=== PATIENT | female | born 1950 | race Two or more races ===

== ENCOUNTER 2022-06-20 02:05 | Inpatient (IN) | payer MEDICARE, MEDICAID ==
[~2022-06-20] VITALS: Ht 162.6 cm; Wt 82.5 kg
[2022-06-20 03:00] LABS: Basophils # (auto) 0 10 ^3/uL (0-0.2); Basophils % (auto) 0.5 % (0.0-2.0); Eosinophils # (auto) 0.1 10 ^3/uL (0-0.8); Eosinophils % (auto) 1.8 % (0.0-7.0); Hematocrit 36.8 % (36.0-46.0); Hemoglobin 12.4 g/dL (12.2-16.2); Lymphocytes # (auto) 1.4 10 ^3/uL (0.4-5.4); Lymphocytes % (auto) 17.8 % (10.0-50.0); Mean Corpuscular Hemoglobin 30.9 pg (28.0-32.0); Mean Corpuscular Hgb Conc. 33.5 g/dL (32.0-36.0); Mean Corpuscular Volume 92.2 fL (80.0-100.0); Monocytes # (auto) 0.6 10 ^3/uL (0-1.3); Monocytes % (auto) 7.6 % (0.0-12.0); Neutrophils # (auto) 5.7 10 ^3/uL (1.6-8.6); Neutrophils % (auto) 72.3 % (37.0-80.0); Red Cell Distribution Width 13.6 % (11.8-14.3); White Blood Cell 7.8 10^3/uL (4.4-10.8)
[2022-06-20 03:08] LABS: INR 1.13 (0.9-1.15); Partial Thromboplastin Time 29.2 sec (24.6-33.4)
[2022-06-20 03:11] LABS: Albumin 3.8 g/dL (3.4-5.0); Magnesium 2.1 mg/dL (1.6-2.6); Potassium 4.1 mmol/L (3.5-5.1)
[2022-06-20 03:15] LABS: Bilirubin, Total 0.5 mg/dL (0.2-1.0); Total Protein 6.9 g/dL (6.4-8.2)
[2022-06-20] MEDS ORDERED: dilTIAZem 25 MG/5 ML VIAL IV ONE ×2 (03:15→03:17)
[2022-06-20] MEDS ORDERED: ONDANSETRON HCL 4 MG/2 ML VIAL IV PRN (05:45)
[2022-06-20] MEDS ORDERED: ZOLPIDEM TARTRATE 5 MG TAB PO PRN (05:45)
[2022-06-20] MEDS ORDERED: ACETAMINOPHEN 325 MG TAB PO PRN (05:45)
[2022-06-20] MEDS ORDERED: MORPHINE SULFATE 4 MG/ML SYR/VIAL IV PRN (05:45)
[2022-06-20] MEDS ORDERED: MAALOX PLUS or MAALOX 30 ML PO ONE (05:45)
[2022-06-20] MEDS ORDERED: LORazepam 0.5 MG TAB PO PRN (05:45)
[2022-06-20] MEDS ORDERED: NITROGLYCERIN 0.4 MG SL TAB SL PRN (05:45)
[2022-06-20] MEDS ORDERED: DEXTROSE (50%) 50ML SYRG IV PRN (05:45)
[2022-06-20] MEDS: SODIUM CHLORIDE 0.9% 1,000 ML IV SCH ×2 (05:55→19:05)
[2022-06-20] MEDS: ACCU-CHEK COMFORT CURVE STRIP VI SCH ×4 (06:43→22:00)
[2022-06-20] MEDS: InsuLIN REG 1unit/0.01ml Soln (100units/ml) SC SCH ×4 (06:47→22:42)
[2022-06-20 07:30] LABS: Urine Bacteria NONE SEEN /hpf (None Seen); Urine Blood Negative /uL (Negative); Urine Specific Gravity 1.013 (1.001-1.035); Urine WBC 1 /hpf (0 - 5)
[2022-06-20] MEDS: DOCUSATE SOD 100 MG CAP PO SCH (10:57)
[2022-06-20] MEDS: CLOPIDOGREL BISULFATE 75 MG TAB PO SCH (10:57)
[2022-06-20] MEDS: ASPirin 81 mg TAB PO SCH (10:57)
[2022-06-20] MEDS: METOPROLOL TARTRATE 25 MG TAB PO SCH ×2 (10:57→22:41)
[2022-06-20] MEDS: ENOXAPARIN SOD 100 MG/1 ML SYRINGE SC SCH ×2 (10:58→22:40)
[2022-06-20] MEDS: LISINOPRIL 10 MG TAB PO SCH (10:58)
[2022-06-20] MEDS: ATORVASTATIN 20 MG TAB PO SCH (22:41)
[2022-06-21] MEDS: InsuLIN REG 1unit/0.01ml Soln (100units/ml) SC SCH ×4 (07:00→21:51)
[2022-06-21] MEDS: ACCU-CHEK COMFORT CURVE STRIP VI SCH ×4 (07:09→21:51)
[2022-06-21] MEDS: SODIUM CHLORIDE 0.9% 1,000 ML IV SCH ×2 (08:25→22:02)
[2022-06-21] MEDS: LISINOPRIL 10 MG TAB PO SCH (10:55)
[2022-06-21] MEDS: METOPROLOL TARTRATE 25 MG TAB PO SCH ×2 (10:55→22:03)
[2022-06-21] MEDS: ASPirin 81 mg TAB PO SCH (11:32)
[2022-06-21] MEDS: CLOPIDOGREL BISULFATE 75 MG TAB PO SCH (11:32)
[2022-06-21] MEDS: ENOXAPARIN SOD 100 MG/1 ML SYRINGE SC SCH ×2 (11:33→22:02)
[2022-06-21] MEDS: DOCUSATE SOD 100 MG CAP PO SCH (12:10)
[2022-06-21 18:28] VITALS: BP 125/64
[2022-06-21 22:00] VITALS: BP 108/63
[2022-06-21] MEDS: ATORVASTATIN 20 MG TAB PO SCH (22:02)
[2022-06-22 05:00] VITALS: BP 149/67
[2022-06-22] MEDS: ACCU-CHEK COMFORT CURVE STRIP VI SCH ×2 (06:25→12:00)
[2022-06-22] MEDS: InsuLIN REG 1unit/0.01ml Soln (100units/ml) SC SCH ×2 (06:28→12:00)
[2022-06-22 09:00] VITALS: BP 142/54
[2022-06-22] MEDS: METOPROLOL TARTRATE 25 MG TAB PO SCH (09:23)
[2022-06-22] MEDS: ASPirin 81 mg TAB PO SCH (09:23)
[2022-06-22] MEDS: CLOPIDOGREL BISULFATE 75 MG TAB PO SCH (09:24)
[2022-06-22] MEDS: DOCUSATE SOD 100 MG CAP PO SCH (09:24)
[2022-06-22] MEDS: LISINOPRIL 10 MG TAB PO SCH (09:25)
[2022-06-22] MEDS: ENOXAPARIN SOD 100 MG/1 ML SYRINGE SC SCH (09:26)
[2022-06-22] MEDS ORDERED: PANTOPRAZOLE 40 MG TAB PO SCH (10:00)
[2022-06-22] MEDS ORDERED: ISOS1TAB28 PO (10:56)
[2022-06-22] MEDS ORDERED: GLIM-5 PO (10:57)
[2022-06-22] MEDS ORDERED: TORS10TA12 PO (10:57)
[2022-06-22] MEDS ORDERED: ASPI1TAB20 PO (10:58)
[2022-06-22] MEDS ORDERED: METF-372 PO (11:00)
[2022-06-22] MEDS ORDERED: MET50T PO (11:01)
[2022-06-22] MEDS ORDERED: ATOR80TA PO (11:03)
[2022-06-22] MEDS ORDERED: MELO1TAB73 PO (11:05)
[2022-06-22] MEDS ORDERED: LISI2.5T47 PO (11:05)
[2022-06-22] MEDS ORDERED: ACE650RS PO (11:07)
[2022-06-22 12:15] VITALS: BP 142/54
[2022-06-22 13:00] VITALS: BP 134/69
== END 2022-06-22 13:30 | disposition home or self-care (01) | DRG 281 ==
LOC: ER 02:05 → EDBD 02:05 → TELE 05:31 → TELE-E-ADS 06-21 15:56 → TELE-EAST 06-21 19:30
PROVIDERS: ADMIT Hospitalist; ATTEND Family Medicine
DX: I21.4 Non-ST elevation (NSTEMI) myocardial infarction (principal); E87.1 Hypo-osmolality and hyponatremia; N17.9 Acute kidney failure, unspecified; I48.92 Unspecified atrial flutter; I24.9 Acute ischemic heart disease, unspecified; I48.91 Unspecified atrial fibrillation; E11.65 Type 2 diabetes mellitus with hyperglycemia; E78.00 Pure hypercholesterolemia, unspecified; I11.9 Hypertensive heart disease without heart failure; I25.10 Atherosclerotic heart disease of native coronary artery without angina pectoris; Z20.822 Contact with and (suspected) exposure to COVID-19; Z91.199 Patient's noncompliance with other medical treatment and regimen due to unspecified reason; Z95.1 Presence of aortocoronary bypass graft; Z79.4 Long term (current) use of insulin
CPT/HCPCS: 36415; 71045; 80053; 81001; 82962; 83036; 83735; 83880; 84443; 84484; 85025; 85610; 85730; 87426; 93005; 96374; 99291; G0378; J1815